=== PATIENT | male | born 1950 ===

== ENCOUNTER 2016-07-12 00:56 | Inpatient (IN) | payer OTHER ==
--- NOTE | 2016-06-22 14:23 | History & Physical Pre-Op ---
General Information and HPI MD Statement: I have seen and personally examined PELON CASILLAS and documented this H&P. The patient is a 65 year old M who presented with a patient stated chief complaint of 25 years of progressively worsening right leg pain with numbness and weakness, worse x past 5 years. Source of Information: patient, old records Exam Limitations: no limitations History of Present Illness: Pelon is a 65-year-old male who has been complaining of 25 years of progressively worsening right leg pain which has worsened over the last 5 years. Pelon states that the pain in his right leg is predominantly on the anterior and posterior surface down into his knee. He does admit to numbness and weakness in his right quad with associated atrophy. He has no significant pain beyond his knee nor does he experience any left leg symptoms. He does occasionally experience right-sided low back pain but no apparent groin pain. Pelon has had 5 epidural steroid injections which have given him temporary symptom relief. He has also tried Arcoxia and diclofenac as well as activity modification which has been minimally effective. Pelon's MRI shows a large right sided L3-4 disc herniation with L4-5 spinal stenosis and degenerative disc disease, consistent with his symptoms. Due to his progressively worsening motor loss and pain, Pelon wants nothing more to do with nonsurgical treatment and has been scheduled for a posterior lumbar decompression and fusion L3-S1 with instrumentation and iliac crest bone grafting on 07/12/2016. Allergies/Medications Allergies: Coded Allergies: codeine (Mild, nausea 06/22/16) Home Med list Coconut Oil 1,000 MG CAPSULE 1,000 MG PO BID general health (Reported) two capsules BID Echinacea Purpurea Root (Echinacea) 80 MG CAPSULE 80 MG PO DAILY general health (Reported) Sitagliptin Phosphate (Januvia) 50 MG TABLET 1 TAB PO DAILY NIDDM (Reported) Tamsulosin HCl (Flomax) 0.4 MG CAP.ER.24H 1 CAP PO DAILY BPH (Reported) Compliance With Home Meds: GOOD Past History Medical History Neurological: NONE EENT: NONE Cardiovascular: NONE Respiratory: NONE Gastrointestinal: NONE Hepatic: NONE Renal: NONE Musculoskeletal: chronic back pain, disk herniation, degen joint disease, osteoarthritis, sciatica, spinal stenosis Psychiatric: NONE Endocrine: diabetes Blood Disorders: NONE Cancer(s): NONE 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 , Age 83. FATHER, , Age 50-60; Cause: Cancer. Psychosocial History Primary Language: Frisian Smoking Status: Former Smoker (quit 26 years ago) ETOH Use: occasional use Other Social History: with 2 daughters and 2 grandchildren Employment History Employment: Employed Profession/Employer: [employer] Review of Systems Review of Systems: Remarkable for the above complaints. Exam & Diagnostic Data Physical Exam: Height: 5'4" Weight: 240lbs. Physical Exam General Appearance Alert, Oriented X3, Cooperative, Mild Distress Skin No Rashes, No Breakdown, No Significant Lesion HEENT Atraumatic, PERRLA, EOMI, Mucous Membr. moist/pink Neck Supple, No JVD, No thryomegaly, +2 Carotid Pulse wo Bruit Lymphatic Cervical nl Cardiovascular Regular Rate, Normal S1, Normal S2, No Murmurs Lungs Clear to Auscultation Abdomen Normal Bowel Sounds, Soft, No Tenderness, No Masses, GLOBOID Neurological Sensation Intact, absent right patellar reflex, atrophy of the right quad, DIFFUSELY DIMINISHED RELEXES IN COLE. LOWER EXTREMITIES, +3/5 RIGHT QUAD STRENGTH Extremities No Clubbing, No Cyanosis, No Edema, Normal Pulses Vascular Normal Pulses Assessment/Plan Assessment/Plan: Assessment: Right L3-4 disc herniation with L4-5 spinal stenosis/DDD. Plan: Pelon is scheduled for a posterior lumbar decompression and fusion L3 -S1 with instrumentation and iliac crest bone grafting on 07/12/2016. We discussed the procedure in full detail. We also discussed the pre-and postoperative course, follow-up care, and anticipated recovery. We also discussed the risks of surgery not to exclude , paralysis, infection, bleeding, continued pain, failure of the surgery, need for future surgery, DVT, vascular injury, CSF leak, etc. Given these risks, he still wishes to proceed. He is scheduled to follow-up with his primary care physician, Dr. Singer, for preoperative clearance. Pelon is tolerant of Percocet for postoperative pain control. Any changes in this patient's plan is based on this patient's outpatient clinical presentation. As Ranked By This Provider Problem List: 1. 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 Spinal stenosis Attending MD Review Statement Attending Statement Attending MD Statement: examined this patient, discuss w/resident/PA/MOLDER SETTER, agreed w/resident/PA/MOLDER SETTER, reviewed images
[~2016-07-12] VITALS: Ht 175.3 cm; Wt 108.9 kg
[~2016-07-12 00:56] MED LIST: COCONUT OIL1000 MG PO; ECHINACEA80 MG PO; FLOMAX0.4 M1 PO; JANUVIA50 M1 PO
--- NOTE | 2016-07-12 15:40 | Operative Report ---
Operative/Inv Procedure Report Surgery Date: 07/12/16 Name of Procedure: Lumbosacral decompression with laminectomies L3 4 4551 right side diagnosis right L3 nerve root and L4 nerve root. Instrumented lumbar fusion with pedicle screws L3 4 bilaterally. Bone graft fusion L34 L4 5 bilaterally with autologous morselized corticocancellous bone. Harvesting of iliac crest bone left posterior iliac crest. Reconstruction of donor site with Master graft implant. His fluoroscopy. Pre-Operative Diagnosis: Disc herniation and spinal stenosis with lateral herniation L3 4 central stenosis L4 5 degenerative stenosis L5-S1. Post-Operative Diagnosis: Same Estimated Blood Loss: 650 Surgeon/Lithographic Press Operator: PAUL TUCKER,CRISTIAN FRANK Anesthesia: general endotracheal tube Monitors: Neuro Operative/Procedure Note Note: Intubation the patient was log rolled in the prone position. The back was sterilely prepped and draped including the left posterior iliac crest. Incision in the midline and carried down over the dorsal elements with electrocautery. Deep retractors were placed. Metallic object was placed and fluoroscopy was used to identify surgical level. The dorsal elements at all 3445 and 51 within with the high-speed bur laminectomies were performed at L3 4 5 and S1 there was severe lateral stenosis at L4 5 which was debrided neural lysis of the L4 nerve root was performed under loupe magnification. Herniation which was quite large cause total blockage of the foramen compression of the L3 nerve found laterally L34. Analysis of the L3 nerve was performed. Both the L3 and L4 nerve roots on the right side were markedly erythematous and swollen. Disc material was removed from within the disc space at L3 4 L4 5. There is no evidence of herniation at L5-S1 stenosis from degenerative encroachment. Corticotomies were created and the pedicles of L3 and L4 bilaterally and using instrumentation the pedicle screws were placed under fluoroscopic guidance. A decision was made to convert the cortical threaded screws to cancellus double threaded screws on the left side which achieved excellent purchase. An incision was made over the left posterior iliac crest a subperiosteal dissection was carried lateral to the crest the Shannon retractor was placed. The cortical cancellus morcellized bone graft was harvested with the osteotomes and curettes. The defect was packed with Master Glock graft the wound was irrigated afterwards Gelfoam was applied over the graft. A closure the lumbodorsal fashion subcutaneous tissue was performed with absorbable suture the skin was closed with allen. The facet joints were decorticated with the pencil point bur and high-speed round bur at L3 4 bilaterally as were the lateral intertransverse processes from L3 to L5. Laterally bone graft was packed from L3 to L5. Bone graft was laid over the facet joints at all 34 and compressed during placement of the rods. Rods were locked into position. The construct was checked in AP and lateral as well as oblique planes and found to be appropriate under fluoroscopic guidance. The wound was copiously irrigated Gelfoam was laid over the laminotomy sites at L3 4 4 5 and 51 on the right side. In a closure the lumbodorsal fashion subcutaneous tissue was performed with absorbable suture the skin was closed with allen.
--- NOTE | 2016-07-12 16:39 | Patient Discharge Instructions ---
Acute Coronary Syndrome Inclusion Criteria At DC or during hospital stay patient has or had the following: ACS DIAGNOSIS No Discharge Core Measures Meds if any: Prescribed or Continued at Discharge Meds if any: NOT Prescribed or Continued at Discharge Congestive Heart Failure Inclusion Criteria At DC or during hospital stay patient has or had the following: CHF DIAGNOSIS No Discharge Core Measures Meds if any: Prescribed or Continued at Discharge Meds if any: NOT Prescribed or Continued at Discharge Cerebrovascular accident Inclusion Criteria At DC or during hospital stay patient has or had the following: CVA/TIA Diagnosis No Discharge Core Measures Meds if any: Prescribed or Continued at Discharge Meds if any: NOT Prescribed or Continued at Discharge Venous thromboembolism Inclusion Criteria VTE Diagnosis No VTE Type NONE VTE Confirmed by (Test) NONE Discharge Core Measures - Per Current guidelines, there needs to be overlap - treatment for the first 5 days of Warfarin therapy. - If discharged on Warfarin prior to 5 days of - overlap therapy, the patient will need to be - assessed for post discharge needs including - *Post discharge parental anticoagulation - *Warfarin and/or parental anticoagulation education - *Follow up date to check INR post discharge At least 5 days overlap therapy as Inpatient No Meds if any: Prescribed or Continued at Discharge Note: Overlap Therapy is Warfarin and Anticoagulant Meds if any: NOT Prescribed or Continued at Discharge
[2016-07-12] MEDS ORDERED: HYDROMORPHONE HC2 M1 PO (16:49)
--- NOTE | 2016-07-12 17:10 | RADIOLOGY REPORT ---
EXAMINATION: XR LUMBOSACRAL SPINE CLINICAL INFORMATION: Lumbar laminectomy with fusion in OR. COMPARISON: None TECHNIQUE: Fluoroscopic equipment was dedicated to the operating room for the performance of a lumbar laminectomy with fusion. 4 spot films were obtained and are archived in PACS. FLUOROSCOPY TIME: 0.5 minutes. FINDINGS: The patient has undergone lumbar decompression and fusion at the L3-L4 level with transpedicular screws and bilateral fusion rods seen in place. Alignment appears anatomic. IMPRESSION: Administrative dictation for lumbar decompression and fusion at L3-L4.
--- NOTE | 2016-07-12 17:25 | Cons- Medical ---
DONALD PRIEST MD 07/12/16 1724: General Information and HPI Consulting Request Date of Consult: 07/12/16 Requested By: RICO MILLER MD History of Present Illness: This is a 65-year-old male with a past medical history of diabetes , currently being maintained on Januvia, benign prostate hyperplasia, with the past surgical history of bilateral rotator cuff tear, tonsillectomy in the past who presented to the [facility] after he was seen in the same day surgery for laminectomy(Dr. Rico Miller primary orthopedics). Postoperatively medical team was consulted with co management of the patient's medical issues. The patient was evaluated postoperatively and he was sitting comfortably in bed without any distress. He had no specific complaints except for mild back pain after the surgery Regarding his diabetes he has been maintained on Januvia for many years. He also maintains his sugar logs and also keep his diet and check for his diabetes. He does complain of mild peripheral neuropathy but he attributes this secondary to his low back pain. Regarding the patient's benign prostate hyperplasia he has been maintained on Flomax and denies any urinary urgency, retention or incontinence. The patient also has a history of obstructive sleep apnea and is maintained on CPAP at night Allergies/Medications Allergies: Coded Allergies: codeine (Mild, nausea 06/22/16) Home Med List: Hydromorphone HCl 2 MG TABLET 2 MG PO Q3P PRN PAIN SCALE 1-3 (MILD) 1-2 TABS PO Q 4-6 HOURS PRN PAIN Sitagliptin Phosphate (Januvia) 50 MG TABLET 1 TAB PO DAILY NIDDM (Reported) Tamsulosin HCl (Flomax) 0.4 MG CAP.ER.24H 1 CAP PO DAILY BPH (Reported) Review of Systems Review of Systems Constitutional: Reports: see HPI. EENTM: Reports: see HPI. Cardiovascular: Denies: chest pain, edema, orthopena. Respiratory: Denies: cough, hemoptysis, orthopnea, short of breath. GI: Denies: bloating, constipation, diarrhea, distention, bowel incontinence. Genitourinary: Denies: discharge, dysuria, frequency, hematuria, hesitation. Musculoskeletal: Reports: joint pain. Denies: back pain, joint swelling. 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 , Age 83. FATHER, , Age 50-60; Cause: Cancer. Psychosocial History Primary Language: Greenlandic Smoking Status: Former Smoker (quit 26 years ago) ETOH Use: occasional use Other Social History: with 2 daughters and 2 grandchildren Employment History Employment: Employed Profession/Employer: [employer] at [employer] Exam & Diagnostic Data Last 24 Hrs of Vital Signs/I&O Vital Signs Date Time Temp Pulse Resp B/P B/P Pulse O2 O2 Flow FiO2 Mean Ox Delivery Rate 07/12 1838 97.0 90 12 150/70 95 Nasal 3.0L Cannula Physical Exam General Appearance: well developed/nourished, obese (evaluate) Head: atraumatic Ears, Nose, Throat: normal pharynx, normal ENT inspection Neck: normal inspection, supple Cardiovascular: regular rate/rhythm, edema Back: normal inspection, the wound looks clean without any purulent discharge or any redness. NO Drainage seen from the dressing Last 24 Hrs of Labs/Lico: Laboratory Tests 07/13/16 0630: CBC w Diff NO MAN DIFF REQ, RBC 4.00 L, MCV 90.5, MCH 30.5, RDW 13.8, MPV 8.7, Gran % 79.5 H, Lymphocytes % 14.4 L, Monocytes % 5.8, Eosinophils % 0.1, Basophils % 0.2, Absolute Granulocytes 13.4 H, Absolute Lymphocytes 2.4, Absolute Monocytes 1.0 H, Absolute Eosinophils 0, Absolute Basophils 0, PUBS MCHC 33.7 07/12/16 1842: Urine Color Cancelled, Urine Clarity Cancelled, Urine pH Cancelled, Ur Specific [place] Cancelled, Urine Protein Cancelled, Urine Ketones Cancelled, Urine Nitrite Cancelled, Urine Bilirubin Cancelled, Urine Urobilinogen Cancelled, Ur Leukocyte Esterase Cancelled, Ur Microscopic Cancelled, Urine Hemoglobin Cancelled, Urine Glucose Cancelled 07/12/16 1630: Hemoglobin A1c 6.7 H, CBC w Diff MAN DIFF ORDERED, RBC 4.52 L, MCV 91.1, MCH 30.1, RDW 13.7, MPV 8.3, Gran % 90.5 H, Lymphocytes % 8.6 L, Monocytes % 0.8 L, Eosinophils % 0, Basophils % 0.1, Absolute Granulocytes 22.4 H, Segmented Neutrophils 84 H, Absolute Lymphocytes 2.1, Lymphocytes 14 L, Monocytes 2, Absolute Monocytes 0.2, Absolute Eosinophils 0, Absolute Basophils 0, Platelet Estimate ADEQUATE, Normocytic RBCs VERIFIED, Normochromic RBCs VERIFIED, PUBS MCHC 33.0 Diagnostic Data CXR Results unremarkable exam Assessment/Plan Assessment/Plan This is a 65-year-old male with a past medical history of diabetes and benign prostate hyperplasia, obstructive sleep apnea currently being maintained on CPAP at night to presented to the [facility] for. Back pain and is currently being seen status post laminectomy, for the management of diabetes mellitus The patient's vitals postoperatively were as follows Temperature 90.7, blood pressure 150/70, pulse ox of 95% on 3 L of oxygen, pulse rate of 90, respiration rate of 12 Labs shows WBC of 24.7 but no bands, hemoglobin and hematocrit of 13.6 and 41.2. EKG looks unremarkable with normal sinus rhythm Assessment 1. Back pain status post laminectomy D1 2. Acute hypoxia status post surgery and anesthesia 3 Chronic diabetes mellitus currently being maintained on Januvia at home 4. History of obstructive sleep apnea currently on CPAP at night 5. Acute leukocytosis seems to reactive after surgery 6. History of benign prostate hyperplasia currently being maintained on Flomax Recommendations -We recommend switching Januvia to NovoLog sliding-scale by the patient is in the hospital -Accu-Cheks 3 times a day at bedtime -Check hemoglobin A1c -For patient's acute hypoxia, recommend incentive spirometry and also do a chest x-ray as the patient is hypoxic postanesthesia -Water antibiotics for now but repeat CBC in the morning to follow the trend of the leukocytosis -Check TSH and free T4 -Aggressive incentive spirometry -Continue with Flomax in the morning -Continue CPAP at night -DVT prophylaxis at all times Problem List: 1. 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 CAMILO TUCKER, [facility] 07/12/16 5376: Assessment/Plan Consult Acknowledgment - Thank you for your consult request. Attending MD Review Statement Attending Statement Attending MD Statement: examined this patient, discuss w/resident/PA/CLERICAL ADJUDICATOR, agreed w/resident/PA/CLERICAL ADJUDICATOR, discussed with family, discussed with nursing Attending Assessment/Plan: 65 yo morbidly obese male with h/o T2DM on Januvia, neuropathy, sleep apnea (not on CPAP), arthritis, BPH, chronic back pain, is admitted s/p lumbar decompression/laminectomy and fusion L3-S1 for disc herniation with spinal stenosis. Medicine consult for co-management. He c/o nausea, but no vomiting. Reports feeling cold. He denies chest pain, dyspnea, palpitations or lightheadedness. On arrival to floor, he was noted to be hypoxic to 86% on RA -- > sats improved to 95-96% on 3L. Denies cough or phlegm. Patient has not underlying cardiac or pulmonary disease. Vitals: afebrile, tachycardic to 90's, BP 150/68, sats 96% on 3L. Unremarkable exam, other than wound dressing to the back that is C/D/I. Labs: WBC 24.7 (10.9 on 07/11), gran 90.5%, no bands, H/H 13.6/41.2, BEP done on 07/11 was normal except glucose was 105. INR 1.12. UA was negative. EKG: SR, Qtc 421, no acute changes. 1. Acute post-operative hypoxic respiratory failure in this patient with underlying sleep apnea, likely 2/2 atelectasis - post-anesthesia effect. Maintain on O2 to keep sats > 92%, provide incentive spirometry, TRC nebs, taper down O2 as possible. Obtain CXR to rule out pneumonia. If patient remains persistently hypoxic, would consider evaluation with ABG and CT chest, and possible NIV as needed. Please note, patient does not use CPAP at home. Adequate pain management per primary team. Bowel regime while on opiates. Check TSH and free T4. 2. T2DM. Accucheks, hold januvia, provide novolog SS while inpatient. Check HbA1c. Resume Januvia on discharge. Diabetic diet. 3. Leukocytosis likely reactive. UA was negative, CXR is pending. Monitor off antibiotics for now. Recheck CBC in AM. 4. BPH. Continue tamsulosin. DVT prophylaxis Alps. Full code. Thank you for the consult. We will continue to follow the patient with you.
[2016-07-12 17:43] LABS: ABSOLUTE BASOPHIL COUNT 0 /CUMM (0.0-0.2); ABSOLUTE EOSINOPHIL COUNT 0 /CUMM (0.0-0.7); ABSOLUTE GRANULOCYTE CT 22.4 /CUMM (1.4-6.5); ABSOLUTE LYMPH COUNT 2.1 /CUMM (1.2-3.4); ABSOLUTE MONOCYTE COUNT 0.2 /CUMM (0.10-0.60); BASOPHIL % 0.1 % (0.0-2.0); EOSINOPHIL % 0 % (0-5); GRANULOCYTE % 90.5 % (42.2-75.2); HEMATOCRIT 41.2 % (42-52); MEAN CORPUSCULAR HGB 30.1 PG (27.0-31.0); MEAN CORPUSCULAR VOLUME 91.1 FL (80.0-94.0); MEAN PLATELET VOLUME 8.3 FL (7.4-10.4); PLATELET COUNT 242 /CUMM (130-400); RBC DISTRIBUTION WIDTH 13.7 % (11.5-14.5); RED BLOOD CELL CT 4.52 /CUMM (4.70-6.10)
[2016-07-12 17:49] LABS: WHITE BLOOD CELL COUNT 24.7 /CUMM (4.8-10.8)
--- NOTE | 2016-07-12 18:26 | NUR ---
PT ARRIVED TO FLOOR AT THIS TIME FROM PACU. ALERT ORIENTED X 3. ON RA 86% PLACED ON 3L 95-96% RR 12, ORAL TEMP 96.2-97.0 BP 150/70 HR 90 CALL PLACED TO SURGICAL PA TO MAKE AWARE, DRESSING TO BACK CD+I, +CMS. MEDICAL CONSULT BEING DONE AT THIS TIME. DINNER ORDER PLACED. PT'S AT BEDSIDE. DTV AWAITING TO VOID S/P MOREAU REMOVAL IN PACU. PER PT HE DOES NOT TAKE INSULIN AT HOME, TAKES JANUVIA. NOTE PT TAKES HE IS COLD- FINGERTIPS COLD, EXTRA BLANKETS PROVIDED. DENIES PAIN TO BACK UNLESS WITH MOVEMENT AND THEN PAIN IS MINIMAL. REFUSING PAIN MEDS AT THIS TIME. DENIES NUMBNESS AND TINGLING TO LEGS/FEET. ORIENTED TO ROOM AND USE OF CALL TURCIOS. WILL CONTINUE TO MONITOR.
[2016-07-12 18:38] VITALS: BP 150/70
--- NOTE | 2016-07-12 19:01 | NUR ---
PORTABLE CXR BEING DONE AT THIS TIME-ORDERED DUE TO DE-SAT WHEN PT ARRIVED TO FLOOR. LUNGS DIMINISHED, NO COUGH. ON 3L AT THIS TIME 96%. IST TEACHING DONE WITH PT.
--- NOTE | 2016-07-12 19:18 | RADIOLOGY REPORT ---
EXAMINATION: XR PORTABLE CHEST CLINICAL INFORMATION: Aspiration. Hypoxia. COMPARISON: None TECHNIQUE: Portable frontal view of the chest was obtained. 7:01 PM FINDINGS: No significant abnormality is noted involving the heart, lungs, mediastinum, bony thorax or soft tissues. IMPRESSION: Unremarkable examination.
--- NOTE | 2016-07-12 20:45 | PN- Orthopedic ---
Subjective Subjective: Postop check: Patient is comfortable, lying in bed. He only has pain when he moves. He denies any numbness or weakness in the extremities. He has yet to void. He has no other complaints. Objective Vital Signs and I&Os Vital Signs Date Time Temp Pulse Resp B/P B/P Pulse O2 O2 Flow FiO2 Mean Ox Delivery Rate 07/12 1838 97.0 90 12 150/70 95 Nasal 3.0L Cannula Physical Exam: Well-developed well-nourished no apparent distress. HEENT: Atraumatic, extraocular motion intact Neck: Supple, no lymphadenopathy Respiratory: No respiratory distress Abdomen: Soft nontender Back: Dry sterile dressing noted Extremities: No edema, no calf pain Neuro: Alert and oriented x3 , neurovascular intact bilateral lower extremities Psych: Mood affect normal, normal memory normal judgment. Skin: Warm and dry, no rash on exposed skin Assessment/Plan Assessment/Plan Postop day 0 status post posterior lumbar decompression and fusion L3-S1 with instrumentation and iliac crest bone grafting secondary to Right L3-4 disc herniation with L4-5 spinal stenosis/DDD. -Ambulate as tolerated, physical therapy tomorrow. -Pain medication as needed -Trial of void - IV fluids until tolerating adequate by mouth -2 doses of postop antibiotics -ALPS for DVT prophylaxis -Appreciate medical input for comanagement of his multiple medical problems -Dressing change postop day 2 -Orthopedically stable at this time -check labs in am due to leukocytosis, agree with medicine, likely reactive 2/2 surgery, no signs of infection clinically. Core Measures/Miscellaneous Venous Thromboembolism VTE Risk Factors: Age > 40, Surgery VTE Contraindications: No Contraindications VTE Diagnosis: No Beta Javier Is Beta Javier a Home Med? No Antibiotics Is Patient on Antibiotics? Yes If Yes: prophylaxis
[2016-07-12 21:04] VITALS: BP 150/68
--- NOTE | 2016-07-12 22:15 | NUR ---
PT DUE TO VOID- MOREAU WAS REMOVED IN PACU JUST BEFORE PT CAME TO FLOOR- DTV APPROX 0100. DENIES PRESSURE OR PAIN TO BLADDER AREA AT THIS TIME, NO URGE TO VOID AT THIS TIME. PROVIDED WITH URINAL. IVF INFUSING AT 100 ML/HR. TAKING IN SMALL AMT'S PO FLUIDS- PO FLUIDS ENCOURAGED. WILL CONTINUE TO MONITOR.
--- NOTE | 2016-07-12 22:42 | NUR ---
PT STATED THAT HE VOIDED IN THE URINAL- EMPTIED AND FLUSHED. "IT WAS ABOUT HALF FULL". INSTRUCTED TO KEEP URINE NEXT VOID AND LET NURSE KNOW
[2016-07-13 01:57] VITALS: BP 130/82
[2016-07-13 06:33] VITALS: BP 132/96
--- NOTE | 2016-07-13 07:34 | PN- Orthopedic ---
Subjective Subjective: Reports back / incisional discomfort, which improves with dilaudid. Tolerating clears. No nausea. Not yet out of bed. No dizziness. No shortness of breath. No chest pains. Voiding well. Denies numbness / tingling. Objective Vital Signs and I&Os Vital Signs Date Time Temp Pulse Resp B/P B/P Pulse O2 O2 Flow FiO2 Mean Ox Delivery Rate 07/13 0633 98.8 99 20 132/96 96 Nasal 3.0L Cannula 07/13 0157 98.6 97 16 130/82 96 Nasal 3.0L Cannula 07/13 2135 Nasal 3.0L Cannula 07/13 2103 97.8 92 15 150/68 97 Nasal 3.0L Cannula 07/12 1838 97.0 90 12 150/70 95 Nasal 3.0L Cannula Intake & Output 07/13 0800 07/13 0000 07/12 1600 07/12 0800 07/12 0000 07/11 1600 Intake Total 800 Output Total Balance 800 Intake, IV 800 Patient 240 lb Weight Physical Exam: General - alert & oriented x 3. comfortable. no acute distress. Lungs - clear bilaterally. no w/r/r. Cardiac - s1s2. reg. Abdomen - soft. nontender. Lumbar dressing c/d/i. no drains. no hematoma. Extremities - warm bilaterally. no c/c/e. calves soft and nontender b/l. nvi. Current Medications: Current Medications Sig/Lillian Start time Last Medication Dose Route Stop Time Status Admin Acetaminophen 650 MG Q4P PRN 07/12 1630 AC PO Acetaminophen 1,000 MG .STK-MED ONE 07/12 0845 DC IV 07/12 0846 Bisacodyl 5 MG DAILY PRN 07/12 1845 AC PO Bisacodyl 10 MG DAILY NEEDED PRN 07/12 1630 AC AL Calcium 600 MG BID 07/12 2200 AC 07/12 PO 211 Cefazolin Sodium 1,000 MG IQ8 07/13 0000 AC 07/13 IV 07/13 1601 0031 Cholecalciferol 1,000 IU DAILY 07/13 1000 AC PO Docusate Sodium 100 MG TID 07/12 2200 AC 07/12 PO 211 Fentanyl Citrate 250 MCG .STK-MED ONE 07/12 0845 DC IM 07/12 0846 Hydromorphone HCl 0.6 MG Q4P PRN 07/12 1645 AC 07/13 IV 0658 Hydromorphone HCl 2 MG Q3P PRN 07/12 1645 AC PO Hydromorphone HCl 4 MG Q3P PRN 07/12 1645 AC 07/12 PO 2116 Insulin Aspart 0 TIDAC 07/13 0800 AC SC Insulin Aspart 0 TIDAC 07/12 1700 DC 07/12 SC 1850 Lactated Ringer's 1,000 ML Q10H 07/12 1630 DC 07/13 IV 0145 Magnesium Hydroxide 30 ML AT BEDTIME PRN 07/12 1645 AC PO Meperidine HCl 50 MG .STK-MED ONE 07/12 1634 DC IM 07/12 1635 Midazolam HCl 4 MG .STK-MED ONE 07/12 0846 DC IM 07/12 0847 Multivitamins 1 TAB DAILY 07/13 1000 AC PO Ondansetron HCl 4 MG Q6P PRN 07/12 1630 AC IV Remifentanil 2 MG .STK-MED ONE 07/12 0846 DC IV 07/12 0847 Senna/Docusate Sodium 2 TAB DAILY PRN 07/12 1845 AC PO Sitagliptin Phosphate 100 MG DAILY 07/13 1000 CAN PO Sitagliptin Phosphate 50 MG DAILY 06/23 1000 DC PO Tamsulosin HCl 0.4 MG DAILY 07/13 1000 AC PO Tamsulosin HCl 0.4 MG DAILY 06/23 1000 DC PO Trimethobenzamide HCl 200 MG Q6P PRN 07/12 1630 AC IM Results Last 48 Hours of Labs: Laboratory Tests 07/13 07/12 07/12 0630 1842 1630 Chemistry Hemoglobin A1c Pending Hematology CBC w Diff Pending MAN DIFF ORDERED WBC (4.8 - 10.8 /CUMM) Pending 24.7 H RBC (4.70 - 6.10 /CUMM) Pending 4.52 L Hgb (14.0 - 18.0 G/DL) Pending 13.6 L Hct (42 - 52 %) Pending 41.2 L MCV (80.0 - 94.0 FL) Pending 91.1 MCH (27.0 - 31.0 PG) Pending 30.1 RDW (11.5 - 14.5 %) Pending 13.7 Plt Count (130 - 400 /CUMM) Pending 242 MPV (7.4 - 10.4 FL) Pending 8.3 Gran % (42.2 - 75.2 %) 90.5 H Lymphocytes % (20.5 - 51.1 %) 8.6 L Monocytes % (1.7 - 9.3 %) 0.8 L Eosinophils % (0 - 5 %) 0 Basophils % (0.0 - 2.0 %) 0.1 Absolute Granulocytes (1.4 - 6.5 /CUMM) 22.4 H Segmented Neutrophils (42.2 - 75.2 %) 84 H Absolute Lymphocytes (1.2 - 3.4 /CUMM) 2.1 Lymphocytes (20.5 - 51.1 %) 14 L Monocytes (1.7 - 9.3 %) 2 Absolute Monocytes (0.10 - 0.60 /CUMM) 0.2 Absolute Eosinophils (0.0 - 0.7 /CUMM) 0 Absolute Basophils (0.0 - 0.2 /CUMM) 0 Platelet Estimate (ADEQUATE) ADEQUATE Normocytic RBCs VERIFIED Normochromic RBCs VERIFIED PUBS MCHC (33.0 - 37.0 G/DL) Pending 33.0 Urines Urine Color Cancelled Urine Clarity Cancelled Urine pH Cancelled Ur Specific [place] Cancelled Urine Protein Cancelled Urine Ketones Cancelled Urine Nitrite Cancelled Urine Bilirubin Cancelled Urine Urobilinogen Cancelled Ur Leukocyte Esterase Cancelled Ur Microscopic Cancelled Urine Hemoglobin Cancelled Urine Glucose Cancelled Assessment/Plan Assessment/Plan This 65 year old male with hx dm, bph, is POD#1 s/p posterior lumbar decompression and fusion L3-S1 with instrumentation and iliac crest bone grafting secondary to Right L3-4 disc herniation with L4-5 spinal stenosis/DDD. advance diet to diabetic diet d/c iv fluids continue dilaudid prn pain control mei-operative ancef x 2 doses accuchecks / ss coverage wean o2. IS teaching PT eval this morning f/u cbc alps / oob dressing change POD#2 f/u medical consult will d/w Core Measures/Miscellaneous Venous Thromboembolism VTE Risk Factors: Age > 40, Surgery VTE Contraindications: No Contraindications VTE Diagnosis: No Beta Javier Is Beta Javier a Home Med? No Antibiotics Is Patient on Antibiotics? Yes If Yes: prophylaxis
[2016-07-13 08:07] LABS: ABSOLUTE BASOPHIL COUNT 0 /CUMM (0.0-0.2); ABSOLUTE EOSINOPHIL COUNT 0 /CUMM (0.0-0.7); ABSOLUTE GRANULOCYTE CT 13.4 /CUMM (1.4-6.5); ABSOLUTE LYMPH COUNT 2.4 /CUMM (1.2-3.4); BASOPHIL % 0.2 % (0.0-2.0); EOSINOPHIL % 0.1 % (0-5); GRANULOCYTE % 79.5 % (42.2-75.2); MEAN CORPUSCULAR HGB 30.5 PG (27.0-31.0); MEAN CORPUSCULAR HGB CONC 33.7 G/DL (33.0-37.0); MEAN CORPUSCULAR VOLUME 90.5 FL (80.0-94.0); MEAN PLATELET VOLUME 8.7 FL (7.4-10.4); PLATELET COUNT 187 /CUMM (130-400); RBC DISTRIBUTION WIDTH 13.8 % (11.5-14.5); WHITE BLOOD CELL COUNT 16.8 /CUMM (4.8-10.8)
[2016-07-13 08:44] LABS: HEMATOCRIT 36.2 % (42-52)
--- NOTE | 2016-07-13 09:35 | PN- Medicine Consult ---
DAYLINDANODEIDREMARY 07/13/16 0929: Assessment/Plan Assessment/Plan Assessment: This is a 65-year-old male with past medical history of diabetes, BPH, obstructive sleep apnea, not using CPAP at home, came in to [facility] for surgical management of disc herniation and spinal stenosis is status post spinal decompression surgery and laminectomy from L3 to S1, day 2 today.Medical team was consulted for management of DM, acute hypoxis respiratory failure and luecocytosis. Yesterday's relevant labs were white count of 24.7, no bands, H&H 13.6/41.2. Patient was afebrile, initially, the patient became hypoxic, however, later he was stabilized on 95% on 3 L of nasal cannula. He continues to saturate 95% on 3 L. Pulse rate around 99, respiration 15. EKG on presentation showed normal sinus rhythm with no acute changes. Problem list along with assessment and plan. Problem #1.Spinal disc herniation and spinal stenosis status post spinal decompression and laminectomy from L3 to S5. Problem #2 Acute hypoxic respiratory failure status post surgery and anesthesia. Problem #3 Chronic diabetes mellitus. Problem #4 Obstructive sleep apnea (not using CPAP) Problem #5 Luecocytosis most likely reactive secondary to surgery. Problem #6.History of BPH Plan: * Continue NovoLog sliding scale. * Continue to monitor fingersticks. * Finger Stick noted to be 155, 155, 175, 208. * White Count has come down to 16.0, chest x-ray was negative, we can check a UA just to make sure no signs on infection (less likely), patient remianed afebrile overnight) * Continue Flomax for BPH. * Continue CPAP at night for obstructive sleep apnea. * Continue incentive spirometry. * Out of bed to chair. * Ambualte as tolerated * PT evaluation. 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 BPH (benign prostatic hyperplasia) 3. Spinal stenosis 4. Leucocytosis 5. S/P laminectomy with spinal fusion Subjective Subjective: I have seen and examined the patient today morning, he was resting comfortably in the bed. His vitals were stable. He was afebrile overnight, MAXIMUM TEMPERATURE of 98.8, slightly tachycardic around 99, blood pressure of 132/96, he was 96% saturating on 3 L of nasal cannula. His breathing seems to be much better and he is not in any distress. Reilly catheter has been removed. Patient hasn't moved his bowel yet. However, he has been given so softener. He complains of pain in the back in the area of surgery, the dressing is present and it is not soaked, it is dry. Review of Systems Constitutional: Denies: chills, diaphoresis, fever, malaise, weakness. EENTM: Denies: blurred vision, double vision, visual changes, eye pain. Cardiovascular: Denies: chest pain, edema, orthopena, palpitations. Respiratory: Denies: cough, hemoptysis, orthopnea, short of breath. Gastrointestinal: Denies: abdominal pain, bloating, constipation, diarrhea. Genitourinary: Reports: no symptoms. Musculoskeletal: Reports: no symptoms. Skin: Denies: cysts, change in skin color, change in hair/nails, dryness. Neurological/Psychological: Reports: see HPI. Hematologic/Endocrine: Reports: no symptoms. Objective Last 24 Hrs of Vital Signs/I&O Vital Signs Date Time Temp Pulse Resp B/P B/P Pulse O2 O2 Flow FiO2 Mean Ox Delivery Rate 07/13 0754 99 132/96 07/13 0633 98.8 99 20 132/96 96 Nasal 3.0L Cannula 07/13 0157 98.6 97 16 130/82 96 Nasal 3.0L Cannula 07/12 2136 Nasal 3.0L Cannula 07/12 2104 97.8 92 15 150/68 97 Nasal 3.0L Cannula 07/12 1838 97.0 90 12 150/70 95 Nasal 3.0L Cannula Intake & Output 07/13 1600 07/13 0800 07/13 0000 Intake Total 800 Output Total Balance 800 Intake, IV 800 Patient 108.862 kg Weight Physical Exam General Appearance: well developed/nourished, no apparent distress, alert, awake , comfortable Head: atraumatic, normal appearance Ears, Nose, Throat: normal pharynx Neck: normal inspection, supple, full range of motion Cardiovascular: regular rate/rhythm Respiratory: normal breath sounds, chest non-tender, no respiratory distress Peripheral Pulses: 2+ radial (R), 2+ radial (L) Abdomen: normal bowel sounds, soft, non-tender Back: dressing present in the area of surgery, dressign is dry, patient unable to lie on back. Extremities: normal inspection, normal capillary refill, normal range of motion, no edema Neurologic/Psychiatric: no motor/sensory deficits, awake, alert, oriented x 3 Current Medications: Current Medications Sig/Lillian Start time Last Medication Dose Route Stop Time Status Admin Acetaminophen 650 MG Q4P PRN 07/12 1630 AC PO Bisacodyl 5 MG DAILY PRN 07/12 1845 AC PO Bisacodyl 10 MG DAILY NEEDED PRN 07/12 1630 AC [place] Calcium 600 MG BID 07/12 2200 AC 07/13 PO 0753 Cefazolin Sodium 1,000 MG IQ8 07/13 0000 DC 07/13 IV 07/13 0801 0754 Cholecalciferol 1,000 IU DAILY 07/13 1000 AC 07/13 PO 0753 Docusate Sodium 100 MG TID 07/12 2200 AC 07/13 PO 0754 Hydromorphone HCl 0.6 MG Q4P PRN 07/12 1645 AC 07/13 IV 0658 Hydromorphone HCl 2 MG Q3P PRN 07/12 1645 AC PO Hydromorphone HCl 4 MG Q3P PRN 07/12 1645 AC 07/12 PO 2116 Insulin Aspart 0 TIDAC 07/13 0800 AC 07/13 SC 0835 Insulin Aspart 0 TIDAC 07/12 1700 DC 07/12 SC 1850 Lactated Ringer's 1,000 ML Q10H 07/12 1630 DC 07/13 IV 0145 Magnesium Hydroxide 30 ML AT BEDTIME PRN 07/12 1645 AC PO Meperidine HCl 50 MG .STK-MED ONE 07/12 1634 DC IM 07/12 1635 Multivitamins 1 TAB DAILY 07/13 1000 AC 07/13 PO 0753 Ondansetron HCl 4 MG Q6P PRN 07/12 1630 AC IV Senna/Docusate Sodium 2 TAB DAILY PRN 07/12 1845 AC PO Sitagliptin Phosphate 100 MG DAILY 07/13 1000 CAN PO Sitagliptin Phosphate 50 MG DAILY 06/23 1000 DC PO Tamsulosin HCl 0.4 MG DAILY 07/13 1000 AC 07/13 PO 0754 Tamsulosin HCl 0.4 MG DAILY 06/23 1000 DC PO Trimethobenzamide HCl 200 MG Q6P PRN 07/12 1630 AC IM Results Last 24 Hrs Lab/Lico Results: Laboratory Tests 07/13/16 0630: CBC w Diff NO MAN DIFF REQ, RBC 4.00 L, MCV 90.5, MCH 30.5, RDW 13.8, MPV 8.7, Gran % 79.5 H, Lymphocytes % 14.4 L, Monocytes % 5.8, Eosinophils % 0.1, Basophils % 0.2, Absolute Granulocytes 13.4 H, Absolute Lymphocytes 2.4, Absolute Monocytes 1.0 H, Absolute Eosinophils 0, Absolute Basophils 0, PUBS MCHC 33.7 07/12/16 1842: Urine Color Cancelled, Urine Clarity Cancelled, Urine pH Cancelled, Ur Specific [place] Cancelled, Urine Protein Cancelled, Urine Ketones Cancelled, Urine Nitrite Cancelled, Urine Bilirubin Cancelled, Urine Urobilinogen Cancelled, Ur Leukocyte Esterase Cancelled, Ur Microscopic Cancelled, Urine Hemoglobin Cancelled, Urine Glucose Cancelled 07/12/16 1630: Hemoglobin A1c Pending, CBC w Diff MAN DIFF ORDERED, RBC 4.52 L, MCV 91.1, MCH 30.1, RDW 13.7, MPV 8.3, Gran % 90.5 H, Lymphocytes % 8.6 L, Monocytes % 0.8 L, Eosinophils % 0, Basophils % 0.1, Absolute Granulocytes 22.4 H, Segmented Neutrophils 84 H, Absolute Lymphocytes 2.1, Lymphocytes 14 L, Monocytes 2, Absolute Monocytes 0.2, Absolute Eosinophils 0, Absolute Basophils 0, Platelet Estimate ADEQUATE, Normocytic RBCs VERIFIED, Normochromic RBCs VERIFIED, PUBS MCHC 33.0 Microbiology 07/12 1000 URINE ROUT: Urine Culture - RECD Recent Imaging Studies: SERVICE DATE: 07/12/16- EXAM TYPE: RAD - XRY-LUMBOSACRAL SPINE AP & LAT EXAMINATION: XR LUMBOSACRAL SPINE FINDINGS: The patient has undergone lumbar decompression and fusion at the L3-L4 level with transpedicular screws and bilateral fusion rods seen in place. Alignment appears anatomic. IMPRESSION: Administrative dictation for lumbar decompression and fusion at L3-L4. AARTI KHAN MD 07/13/16 1022: Attending MD Review Statement Attending Sign Off Attending Cosign Statement: I have: examined this patient, reviewed al EMR data, personally reviewd images, discussd w/resident/PA/DYNAMOMETER MECHANIC, discussed mgmt plan w/alek, discussed mgmt plan w/pt, agreed w/resident/PA/DYNAMOMETER MECHANIC, amended to note. Other Findings: Patient seen and examined, feeling slightly better. He is just uncomfortable the due to his posterior. Patient is a 65-year-old male with pmh sig for diabetes, currently being maintained on Januvia, benign prostate hyperplasia, with the past surgical history of bilateral rotator cuff tear, tonsillectomy in the past who presented to the [facility] after he was seen in the same day surgery for laminectomy (Dr. Rico Roque [facility] orthoped[facility]). Postoperatively medical team was consulted with co management of the patient's medical issues. Patient was hypoxic yesterday. Still requiring 3 L of oxygen. Vital Signs Date Time Temp Pulse Resp B/P B/P Pulse O2 O2 Flow FiO2 Mean Ox Delivery Rate 07/13 0754 99 132/96 07/13 0633 98.8 99 20 132/96 96 Nasal 3.0L Cannula 07/13 0157 98.6 97 16 130/82 96 Nasal 3.0L Cannula 07/12 2136 Nasal 3.0L Cannula 07/12 2104 97.8 92 15 150/68 97 Nasal 3.0L Cannula 07/12 1838 97.0 90 12 150/70 95 Nasal 3.0L Cannula on exam; aox3, nad cv; s1,s2, rrr resp; clear abd; soft, nt, bs+ ext; no edema back: + dressing on lower back. Laboratory Tests 07/13 07/12 0630 1842 Hematology CBC w Diff NO MAN DIFF REQ WBC (4.8 - 10.8 /CUMM) 16.8 H RBC (4.70 - 6.10 /CUMM) 4.00 L Hgb (14.0 - 18.0 G/DL) 12.2 L Hct (42 - 52 %) 36.2 L MCV (80.0 - 94.0 FL) 90.5 MCH (27.0 - 31.0 PG) 30.5 RDW (11.5 - 14.5 %) 13.8 Plt Count (130 - 400 /CUMM) 187 MPV (7.4 - 10.4 FL) 8.7 Gran % (42.2 - 75.2 %) 79.5 H Lymphocytes % (20.5 - 51.1 %) 14.4 L Monocytes % (1.7 - 9.3 %) 5.8 Eosinophils % (0 - 5 %) 0.1 Basophils % (0.0 - 2.0 %) 0.2 Absolute Granulocytes (1.4 - 6.5 /CUMM) 13.4 H Absolute Lymphocytes (1.2 - 3.4 /CUMM) 2.4 Absolute Monocytes (0.10 - 0.60 /CUMM) 1.0 H Absolute Eosinophils (0.0 - 0.7 /CUMM) 0 Absolute Basophils (0.0 - 0.2 /CUMM) 0 PUBS MCHC (33.0 - 37.0 G/DL) 33.7 Urines Urine Color Cancelled Urine Clarity Cancelled Urine pH Cancelled Ur Specific [place] Cancelled Urine Protein Cancelled Urine Ketones Cancelled Urine Nitrite Cancelled Urine Bilirubin Cancelled Urine Urobilinogen Cancelled Ur Leukocyte Esterase Cancelled Ur Microscopic Cancelled Urine Hemoglobin Cancelled Urine Glucose Cancelled 07/12 1630 Chemistry Hemoglobin A1c Pending Hematology CBC w Diff MAN DIFF ORDERED WBC (4.8 - 10.8 /CUMM) 24.7 H RBC (4.70 - 6.10 /CUMM) 4.52 L Hgb (14.0 - 18.0 G/DL) 13.6 L Hct (42 - 52 %) 41.2 L MCV (80.0 - 94.0 FL) 91.1 MCH (27.0 - 31.0 PG) 30.1 RDW (11.5 - 14.5 %) 13.7 Plt Count (130 - 400 /CUMM) 242 MPV (7.4 - 10.4 FL) 8.3 Gran % (42.2 - 75.2 %) 90.5 H Lymphocytes % (20.5 - 51.1 %) 8.6 L Monocytes % (1.7 - 9.3 %) 0.8 L Eosinophils % (0 - 5 %) 0 Basophils % (0.0 - 2.0 %) 0.1 Absolute Granulocytes (1.4 - 6.5 /CUMM) 22.4 H Segmented Neutrophils (42.2 - 75.2 %) 84 H Absolute Lymphocytes (1.2 - 3.4 /CUMM) 2.1 Lymphocytes (20.5 - 51.1 %) 14 L Monocytes (1.7 - 9.3 %) 2 Absolute Monocytes (0.10 - 0.60 /CUMM) 0.2 Absolute Eosinophils (0.0 - 0.7 /CUMM) 0 Absolute Basophils (0.0 - 0.2 /CUMM) 0 Platelet Estimate (ADEQUATE) ADEQUATE Normocytic RBCs VERIFIED Normochromic RBCs VERIFIED PUBS MCHC (33.0 - 37.0 G/DL) 33.0 Assessment and recommendations: Patient is a 65-year-old male with pmh sig for diabetes, currently being maintained on Januvia, benign prostate hyperplasia, with the past surgical history of bilateral rotator cuff tear, tonsillectomy in the past who presented to the [facility] after he was seen in the same day surgery for laminectomy (Dr. Rico Roque [facility] orthoped[facility]). Postoperatively medical team was consulted with co management of the patient's medical issues. Patient was hypoxic yesterday. Still requiring 3 L of oxygen. Blood sugars are running in acceptable range. Continue sliding scale insulin. Patient on Dilaudid for pain management. Encourage incentive spirometry, ambulation with PT. Patient remains hypoxic despite doing about then will consider chest CT to rule out PE. For now will hold off. Continue other current medications. DVT prophylaxis: ALPS per spine surgery. Thank you will follow.
[2016-07-13 10:00] VITALS: BP 128/60
[2016-07-13 14:30] VITALS: BP 150/80
--- NOTE | 2016-07-13 21:37 | NUR ---
PTS PULSE 109, ASYMPTOMATIC. DENIES CP. LAYING COMFORTABLY IN BED. SURGICAL PA MADE AWARE. NO NEW ORDERS. WILL CONTINUE TO MONITOR.
[2016-07-13 22:24] VITALS: BP 150/64
[2016-07-14] VITALS (7 sets, daily range): BP systolic 110–178; BP diastolic 58–80
--- NOTE | 2016-07-14 08:18 | PN- Medicine Consult ---
AGUEDANickDEIDREMARY 07/14/16 0806: Assessment/Plan Assessment/Plan Assessment: This is a 65-year-old male with past medical history of diabetes, BPH, obstructive sleep apnea, not using CPAP at home, came in to [facility] for surgical management of disc herniation and spinal stenosis is status post spinal decompression surgery and laminectomy from L3 to S1, day 2 today.Medical team was consulted for management of DM, acute hypoxic respiratory failure and luecocytosis. On admission - relevant labs were white count of 24.7, no bands, H&H 13.6/41.2. Patient was afebrile, initially, the patient became hypoxic, however, later he was stabilized on 95% on 3 L of nasal cannula. He continues to saturate 95% on 3 L. Pulse rate around 99, respiration 15,patient in significant pain. EKG on presentation showed normal sinus rhythm with no acute changes. Problem list along with assessment and plan. Problem #1.Spinal disc herniation and spinal stenosis status post spinal decompression and laminectomy from L3 to S5. Problem #2 Acute hypoxic respiratory failure status post surgery and anesthesia, rule out PE. Problem #3 Chronic diabetes mellitus. Problem #4 Obstructive sleep apnea (not using CPAP) Problem #5 Luecocytosis most likely reactive secondary to surgery. Problem #6.History of BPH Plan: * Patient in signigficant amount of pain ,recieved 4 mg po dilaudid given by pa, also recived one time valium. * the tachycardia and high systolic bp possible 2/2 to pain, ct to monitor, however we need to rule out PE. * Would recommend checking a bep and if creatinine within normal range, consider doing a CTA to rule out PE. * Continue NovoLog sliding scale. * Continue to monitor fingersticks. * Finger Stick noted to be 162,242,163,171,200 * White Count has come down to 16.0 yday chest x-ray was negative,Ua negative, therefore have not been monitoring CBC for white count. * Continue Flomax for BPH. * Continue CPAP at night for obstructive sleep apnea. * Continue incentive spirometry. * Out of bed to chair. * Ambualte as tolerated * PT evaluation. * DVt PX at all the time Problem List: 1. S/P laminectomy with spinal fusion 2. Leucocytosis 3. Spinal stenosis 4. Diabetes 1.5, managed as type 2 5. BPH (benign prostatic hyperplasia) Subjective Subjective: I have seen and examined the patient today morning. He c/o continued pain, severe around the area of surgery. He is tachycardic and slightly higher blood pressure possible 2/2 to pain. Review of Systems Constitutional: Reports: see HPI. Objective Last 24 Hrs of Vital Signs/I&O Vital Signs Date Time Temp Pulse Resp B/P B/P Pulse O2 O2 Flow FiO2 Mean Ox Delivery Rate 07/14 0716 98.5 102 20 140/80 94 Nasal 3.0L Cannula 07/14 0000 Nasal 2.0L Cannula 07/13 2224 98.5 109 20 150/64 95 07/13 1610 99.5 07/13 1600 Nasal 2.0L Cannula 07/13 1548 99.5 07/13 1430 100.1 115 20 150/80 93 07/13 1416 101.1 07/13 1000 128/60 Intake & Output 07/14 1600 07/14 0800 07/14 0000 Intake Total 480 Output Total 800 Balance -320 Intake, Oral 480 Output, Urine 800 Physical Exam General Appearance: well developed/nourished, no apparent distress, alert, awake Head: atraumatic, normal appearance Cardiovascular: regular rate/rhythm Respiratory: normal breath sounds Peripheral Pulses: 2+ radial (R), 2+ radial (L) Abdomen: normal bowel sounds, soft, non-tender Back: dressing present, dry, no discharge noted. Current Medications: Current Medications Sig/Lillian Start time Last Medication Dose Route Stop Time Status Admin Acetaminophen 650 MG .STK-MED ONE 07/13 1417 DC PO 07/13 1418 Acetaminophen 650 MG Q4P PRN 07/12 1630 AC 07/13 PO 1416 Bisacodyl 5 MG DAILY PRN 07/12 1845 AC PO Bisacodyl 10 MG DAILY NEEDED PRN 07/12 1630 AC MT Calcium 600 MG BID 07/12 220 AC 07/13 PO 202 Cholecalciferol 1,000 IU DAILY 07/13 1000 AC 07/13 PO 0753 Docusate Sodium 100 MG TID 07/12 2200 AC 07/13 PO 202 Hydromorphone HCl 0.6 MG Q4P PRN 07/12 1645 AC 07/14 IV 0647 Hydromorphone HCl 2 MG Q3P PRN 07/12 1645 AC PO Hydromorphone HCl 4 MG Q3P PRN 07/12 1645 AC 07/13 PO 2127 Insulin Aspart 0 TIDAC 07/13 0800 AC 07/13 SC 1805 Magnesium Hydroxide 30 ML AT BEDTIME PRN 07/12 1645 AC PO Multivitamins 1 TAB DAILY 07/13 1000 AC 07/13 PO 0753 Ondansetron HCl 4 MG Q6P PRN 07/12 1630 AC 07/14 IV 0114 Patient Medication 1 ED ONE ONE 07/13 1415 DC 07/14 Teaching ED 07/13 1416 0752 Senna/Docusate Sodium 2 TAB DAILY PRN 07/12 1845 AC PO Tamsulosin HCl 0.4 MG DAILY 07/13 1000 AC 07/13 PO 0754 Trimethobenzamide HCl 200 MG Q6P PRN 07/12 1630 AC IM Results Last 24 Hrs Lab/Lico Results: Laboratory Tests 07/13/16 1714: Urine Color YEL, Urine Clarity CLEAR, Urine pH 6.0, Ur Specific [place] 1.020, Urine Protein NEG, Urine Ketones NEG, Urine Nitrite NEG, Urine Bilirubin NEG, Urine Urobilinogen 0.2, Ur Leukocyte Esterase NEG, Ur Microscopic SEDIMENT EXAMINED, Urine RBC 1-3, Urine WBC 1-3 H, Urine Hemoglobin TRACE-LYSED H, Urine Glucose 100 H 07/13/16 1700: Pulse Ox Probe Site RF, ABG O2 Sat Calc/Silvia 94.0, O2 Concentration % 4L, O2 Delivery Method N/C ERIN TUCKER,AARTI 07/14/16 1356: Attending MD Review Statement Attending Sign Off Attending Cosign Statement: I have: examined this patient, [facility], personally reviewd images, discussd w/resident/PA/STRUCTURAL STEEL FITTER, discussed mgmt plan w/alek, discussed mgmt plan w/pt, agreed w/resident/PA/STRUCTURAL STEEL FITTER, amended to note. Other Findings: Patient seen and examined, initially when I went in the morning he was sleeping. I went back and at that point he was awake. He is not feeling well at all. He 's complaining of a lot of pain. But his , he had difficult time sleeping last night. He did receive Valium. Patient also has a low-grade temp. He continues to remain hypoxic and he still tachycardic. He is not moving. Vital Signs Date Time Temp Pulse Resp B/P B/P Pulse O2 O2 Flow FiO2 Mean Ox Delivery Rate 07/14 1153 99.9 92 20 134/78 94 Nasal 2.0L Cannula 07/14 0800 Nasal 3.0L Cannula 07/14 0716 98.5 102 20 140/80 94 Nasal 3.0L Cannula 07/14 0000 Nasal 2.0L Cannula 07/13 2224 98.5 109 20 150/64 95 07/13 1610 99.5 07/13 1600 Nasal 2.0L Cannula 07/13 1548 99.5 07/13 1430 100.1 115 20 150/80 93 07/13 1416 101.1 on exam; aox3, mild distress 2/2 to pain. cv; s1,s2, rrr, tachycardic. resp; clear abd; soft, nt, bs+ ext; no edema. back: + dressing at lower back. Laboratory Tests 07/14 07/14 1343 1150 Chemistry Sodium Pending Potassium Pending Chloride Pending Carbon Dioxide Pending Anion Gap Pending BUN Pending Creatinine Pending BUN/Creatinine Ratio Pending Hematology CBC w Diff NO MAN DIFF REQ WBC (4.8 - 10.8 /CUMM) 17.0 H RBC (4.70 - 6.10 /CUMM) 3.47 L Hgb (14.0 - 18.0 G/DL) 10.7 L Hct (42 - 52 %) 31.5 L MCV (80.0 - 94.0 FL) 91.0 MCH (27.0 - 31.0 PG) 30.8 RDW (11.5 - 14.5 %) 13.6 Plt Count (130 - 400 /CUMM) 178 MPV (7.4 - 10.4 FL) 8.7 Gran % (42.2 - 75.2 %) 73.5 Lymphocytes % (20.5 - 51.1 %) 19.0 L Monocytes % (1.7 - 9.3 %) 7.2 Eosinophils % (0 - 5 %) 0.1 Basophils % (0.0 - 2.0 %) 0.2 Absolute Granulocytes (1.4 - 6.5 /CUMM) 12.5 H Absolute Lymphocytes (1.2 - 3.4 /CUMM) 3.2 Absolute Monocytes (0.10 - 0.60 /CUMM) 1.2 H Absolute Eosinophils (0.0 - 0.7 /CUMM) 0 Absolute Basophils (0.0 - 0.2 /CUMM) 0 PUBS MCHC (33.0 - 37.0 G/DL) 33.8 07/13 07/13 1714 1700 Blood Gas Pulse Ox Probe Site RF ABG O2 Sat Calc/Silvia (92.0 - 96.0 %) 94.0 O2 Concentration % 4L O2 Delivery Method N/C Urines Urine Color (YEL,AMB,STR) YEL Urine Clarity (CLEAR) CLEAR Urine pH (5.0 - 8.0) 6.0 Ur Specific [place] (1.001 - 1.035) 1.020 Urine Protein (NEG,<30 MG/DL) NEG Urine Ketones (NEG) NEG Urine Nitrite (NEG) NEG Urine Bilirubin (NEG) NEG Urine Urobilinogen (0.1 - 1.0 EU/dl) 0.2 Ur Leukocyte Esterase (NEG) NEG Ur Microscopic SEDIMENT EXAMINED Urine RBC (0 - 5 /HPF) 1-3 Urine WBC (0 - 2 /HPF) 1-3 H Urine Hemoglobin (NEG) TRACE-LYSED H Urine Glucose (N MG/DL) 100 H Assessment and recommendations: Patient is a 65-year-old male with pmh sig for diabetes, currently being maintained on Januvia, benign prostate hyperplasia, with the past surgical history of bilateral rotator cuff tear, tonsillectomy in the past who presented to the [facility] after he was seen in the same day surgery for laminectomy (Dr. Rico Roque [facility]). Postoperatively medical team was consulted with co management of the patient's medical issues. Patient continues to remain hypoxic and tachycardic, he is not moving much and claims that his pain is not well controlled. At this point recommend adequate pain control. Would recommend getting a BMP and if creatinine is normal and then proceed with CTA of the chest to rule out PE. Patient needs to admitted with physical therapy and use incentive spirometer. Blood sugars are in acceptable range. Continues to have leukocytosis which could be related to stress in the postoperative period. Urinalysis yesterday was normal. We will follow-up on the chest CTA. Continue other current meds. DVT Px; ALPS per spine surgery. D/W pt's at bedside.
--- NOTE | 2016-07-14 10:43 | PN- Orthopedic ---
Subjective Subjective: Pt. and report significant back pain over night despite Dilaudid. Pt. did not sleep " all night", couldn't find comortable position States that Dialudid was making him drowsy without relief of pain This morning pt. received Valium in addition to narcotics, which helped slightly only. Objective Vital Signs and I&Os Vital Signs Date Time Temp Pulse Resp B/P B/P Pulse O2 O2 Flow FiO2 Mean Ox Delivery Rate 07/14 0716 98.5 102 20 140/80 94 Nasal 3.0L Cannula 07/14 0000 Nasal 2.0L Cannula 07/13 2224 98.5 109 20 150/64 95 07/13 1610 99.5 07/13 1600 Nasal 2.0L Cannula 07/13 1548 99.5 07/13 1430 100.1 115 20 150/80 93 07/13 1416 101.1 Intake & Output 07/14 1600 07/14 0800 07/14 0000 07/13 1600 07/13 0800 07/13 0000 Intake Total 480 900 800 Output Total 800 600 Balance -320 300 800 Intake, IV 800 800 Intake, Oral 480 100 Number 0 Bowel Movements Output, Urine 800 600 Patient 240 lb Weight Drowsy, but alert when awakened, appropriate, answering questions. Looks somewhat uncomfortable. Lying on his R side for better comfort Cor rgeular Lungs clear Back with large dressing over lower back, clean, dry, intact. Bilat. LE warm , perfused. Good sensation bilat. Limited ROM , unable to test secondary to pt. position and pain. Assessment/Plan Assessment/Plan s/p Lumbar lami POD #2 Gross neurovascular check is intact Wound site with dressing apperas intact without erythrema or infection Pain is a major issue. Consider changing narcotic . Continue Valium. Increase mobility as pain better controlled Leukocytosis. Declining yesterday. Will get follow up CBC for today. Medical team involved in management of DM , hypoxia and leukocytosis. I suspect hypoxia may be partially related to poor inspiratory effort due to poor pain control. Will discuss further plan with surgeon and team. Will follow up CBC results. Core Measures/Miscellaneous Venous Thromboembolism VTE Risk Factors: Age > 40, Surgery VTE Contraindications: No Contraindications VTE Diagnosis: No Beta Javier Is Beta Javier a Home Med? No Antibiotics Is Patient on Antibiotics? Yes If Yes: prophylaxis
--- NOTE | 2016-07-14 11:38 | NUR ---
Physical therapy: Patient approached for PT this AM. Patient refusing PT at this time due to ongoing, severe pain. Will follow up this PM as appropriate. Thank you.
[2016-07-14 13:30] LABS: ABSOLUTE BASOPHIL COUNT 0 /CUMM (0.0-0.2); ABSOLUTE EOSINOPHIL COUNT 0 /CUMM (0.0-0.7); ABSOLUTE GRANULOCYTE CT 12.5 /CUMM (1.4-6.5); ABSOLUTE LYMPH COUNT 3.2 /CUMM (1.2-3.4); ABSOLUTE MONOCYTE COUNT 1.2 /CUMM (0.10-0.60); BASOPHIL % 0.2 % (0.0-2.0); EOSINOPHIL % 0.1 % (0-5); GRANULOCYTE % 73.5 % (42.2-75.2); HEMATOCRIT 31.5 % (42-52); MEAN CORPUSCULAR HGB 30.8 PG (27.0-31.0); MEAN CORPUSCULAR HGB CONC 33.8 G/DL (33.0-37.0); MEAN PLATELET VOLUME 8.7 FL (7.4-10.4); PLATELET COUNT 178 /CUMM (130-400); RBC DISTRIBUTION WIDTH 13.6 % (11.5-14.5); RED BLOOD CELL CT 3.47 /CUMM (4.70-6.10)
--- NOTE | 2016-07-14 18:36 | CT SCAN REPORT ---
EXAMINATION: CT ANGIOGRAM OF THE CHEST WITH AND WITHOUT CONTRAST (CT PULMONARY ANGIOGRAM FOR PE) CLINICAL INFORMATION: Evaluate for pulmonary embolism. Tachycardia postoperative. COMPARISON: Chest x-ray 07/12/2016. TECHNIQUE: Prior to contrast administration, noncontrast localization images were obtained. Subsequently, multidetector volumetric imaging was performed from the thoracic inlet to below the diaphragms following the administration of 95 mL Optiray 320 intravenous contrast. No contrast reaction reported. Sagittal, coronal, and MIP oblique sagittal reformatted images were obtained on the CT workstation, uploaded to PACS, and reviewed. Total exam dose-length product 537 mGy-cm. FINDINGS: QUALITY OF STUDY/CONTRAST BOLUS: Satisfactory PULMONARY ARTERIES: Decreased enhancement with possible defect in the distal interlobar branches to the right upper lobe, suspicious but not definitive for a peripheral embolus. No central clot. THORACIC AORTA: No aneurysm or dissection. LUNG: Pleural-based consolidation in the right lower lobe and right middle lobe most likely atelectasis. Minimal linear atelectasis at the left base left lower lobe. PLEURA: No pleural effusion or pneumothorax. MEDIASTINUM: Normal heart size. No pericardial effusion. No hilar or mediastinal lymphadenopathy. No evidence of septal bowing or right heart strain. CHEST WALL/AXILLA: No axillary or internal mammary lymphadenopathy. OSSEOUS STRUCTURES: Spondylosis of the dorsal spine. UPPER ABDOMEN: Unremarkable. No reflux of contrast into the hepatic veins to suggest elevated right heart pressures. IMPRESSION: Equivocal findings in the peripheral interlobar branches to the right upper lobe. Possible but not definitive peripheral emboli, no central clot. Pleural-based atelectasis in the right middle lobe and right lower lobe. Minimal linear atelectasis in the left lower lobe.
--- NOTE | 2016-07-14 19:00 | NUR ---
NURSING NOTE: PT TRANSFERED TO 206 FORM 2NA AT 1450. PT A&O, VSS CHARTED. PT AND ORIENTED TO ROOM AND CALL TURCIOS. PT AND EDUCATED ON THE NEED FOR AMBULATION AND PT AGREEABLE TO ATTEMPT TO GET OOB. PT MEDICATED FOR PAIN 6/10 AT 1545 WITH PO DILAUDID ORDERED. AT 1630 PT REFUSING TO TRY TO GET OOB WITH NURSING AND SUPERVISOR SAMPLE, BUT AGREES THAT HE WILL TRY IN 1/2 HR. PT EDUCATED ON THE NEED FOR AMBULATION AND THE RISK OF COMPLICATIONS THAT MAY OCCUR WHEN A POST-OP PT REMAINS SEDENTARY. AT 1700 TRANSPORT ARRIVED TO FLOOR TO TAKE PT FOR CTA ORDERED BY SURGICAL PA. PT RETURNED TO FLOOR AT 1750 AT THIS TIME NURSING AND MST ATTEMPTED TO GET PT OOB. PT WAS ABLE TO GET TO SIDE OF BED WITH SOME ASSISTANCE BUT REFUSED TO TRY TO STAND OR AMBULAT TO CHAIR STATING THAT "I DON'T WANT TO STRAIN MY BACK AND I JUST WANT TO LAY DOWN" MULTIPLE ATTEMPT WERE MADE BY NURSING AND MST TO STAND AND PT CONTIUED TO RESIST. PT ONCE AGAIN EDUCATED ON THE CONSEQUENCES OF NOT GETTING OUT OF BED. SPOKE TO INEZ FRANK AT 1850 READ RESULTS OF CTA TO HER. AT THIS TIME INEZ FRANK ALSO MADE AWARE OF THE MULTIPLE ATTEMPTS TO GET PT OOB. WILL CONTIUE TO MONITOR.
--- NOTE | 2016-07-14 20:57 | NUR ---
ATTEMPT MADE TO AMBULATE PT, BUT PT VERY RELUCTANT TO EVEN GET OOB AT THIS TIME R/T PAIN WITH MOVEMENT. EXPLAINED TO PT THE IMPORTANCE OF AMBULATION AND MOVING FOLLOWING SURGERY, PT VERBALIZES UNDERSTANDING AND INSISTANT HE IS UNABLE TO AT THIS TIME. PT AGREED TO STAND AT SIDE OF BED WITH ASSISTANCE. PT SAT UP IN BED WITH MAX ASSIST OF 3, AFTER SITTING AT EDGE OF BED FOR APPROX 3 MINUTES PT STATES HE CANNOT STAND AND LAID BACK DOWN. PT REPOSITIONED FOR COMFORT. IMPORTANCE FOR PT TO MOVE AND AMBULATE REITERATED AND PT VERABLIZED UNDERSTANDING. IST USED WITH ASSISTANCE AT THIS TIME. WILL MONITOR.
--- NOTE | 2016-07-14 22:17 | Event Note ---
Event Note Event Note: Upon request of the medical team a CTA was ordered to rule out pulmonary emboli. The results of the CAT scan were as follows IMPRESSION: Equivocal findings in the peripheral interlobar branches to the right upper lobe. Possible but not definitive peripheral emboli, no central clot. Pleural-based atelectasis in the right middle lobe and right lower lobe. Minimal linear atelectasis in the left lower lobe. The case was discussed with the MOD and the medical attending on-call and it was felt given the low probability of pulmonary emboli and the extraordinary risk of anticoagulating given the recent surgical procedure. No anticoagulation would be warranted at the current time. The patient has been asymptomatic and oxygenating well and remains hemodynamically stable.
[2016-07-15 06:22] VITALS: BP 148/80
--- NOTE | 2016-07-15 07:44 | PN- Medicine Consult ---
ALEJANDRA AMAYA 07/15/16 0742: Assessment/Plan Assessment/Plan Assessment: This is a 65-year-old male with past medical history of diabetes, BPH, obstructive sleep apnea, not using CPAP at home, came in to [facility] for surgical management of disc herniation and spinal stenosis is status post spinal decompression surgery and laminectomy from L3 to S1, day 3 today.Medical team was consulted for management of DM, acute hypoxic respiratory failure and luecocytosis. On admission - relevant labs were white count of 24.7, no bands, H&H 13.6/41.2. Patient was afebrile, initially, the patient became hypoxic, however, later he was stabilized on 95% on 3 L of nasal cannula. He continues to saturate 95% on 3 L. Pulse rate around 99, respiration 15,patient in significant pain, his white count did come down, however she continues to spike fever overnight. CTA was equivocla for pe, no central pe but cannot rule out peripheral pe, patient cannot be on AC 2/2 to recent surgery.We will need to repeat blood work today and send blood cultures to rule out fever 2/2 to infection. Earlier UA and CXR was negative for infection. Problem list along with assessment and plan. Problem #1.Spinal disc herniation and spinal stenosis status post spinal decompression and laminectomy from L3 to S5. Problem #2 Acute hypoxic respiratory failure status post surgery and anesthesia, rule out PE. Problem #3 Chronic diabetes mellitus. Problem #4 Obstructive sleep apnea (not using CPAP) Problem #5 Luecocytosis most likely reactive secondary to surgery. Problem #6.History of BPH Problem #7 Postop fever Plan: * Patient in signigficant amount of pain ,recieved 4 mg po dilaudid given by pa, was started on gabapentin * The tachycardia and high systolic bp possible 2/2 to pain, ct to monitor, however PE was another possibility and CTA was done to rule out PE, which was equivocal,there was no central pe, but peripheral pe couldnt be completely ruled out, patient cannot be on AC 2/2 to recent surgery, US doppler b/l lower extremity pending. * continues to spike fever, please send today labwork and blood cultures. * Continue NovoLog sliding scale. * Continue to monitor fingersticks. * Continue Flomax for BPH. * Continue CPAP at night for obstructive sleep apnea. * Continue incentive spirometry. * Out of bed to chair. * Ambualte as tolerated * PT evaluation. * DVt PX with ALPS Problem List: 1. Diabetes 2. Spinal stenosis 3. Leucocytosis 4. S/P laminectomy with spinal fusion Subjective Subjective: i have seen and examined the patient today morning. Review of Systems Constitutional: Reports: see HPI. EENTM: Denies: blurred vision, double vision, visual changes. Cardiovascular: Denies: chest pain, edema, orthopena, palpitations. Respiratory: Denies: cough, hemoptysis, orthopnea, short of breath. Gastrointestinal: Reports: see HPI. Genitourinary: Reports: no symptoms. Musculoskeletal: Reports: back pain, muscle pain. Skin: Reports: no symptoms. Neurological/Psychological: Reports: no symptoms. Hematologic/Endocrine: Reports: no symptoms. Immunologic/Allergic: Reports: no symptoms. Objective Last 24 Hrs of Vital Signs/I&O Vital Signs Date Time Temp Pulse Resp B/P B/P Pulse O2 O2 Flow FiO2 Mean Ox Delivery Rate 07/15 0622 98.8 96 20 148/80 94 Room Air 07/14 2330 100.5 07/14 2236 101.1 07/14 1943 98.1 106 18 148/62 94 Room Air Room Air 07/14 1914 97.7 108 20 178/60 94 07/14 1800 98.2 86 18 110/58 94 Room Air Room Air 07/14 1616 102 20 128/70 95 07/14 1600 96 Nasal 1.0L Cannula 07/14 1453 98.6 101 18 114/60 95 Nasal 1.0L Cannula 07/14 1153 99.9 92 20 134/78 94 Nasal 2.0L Cannula 07/14 0800 Nasal 3.0L Cannula Intake & Output 07/15 0800 07/15 0000 07/14 1600 Intake Total 800 640 Output Total 900 900 Balance -100 -260 Intake, IV 80 Intake, Oral 720 640 Number 0 Bowel Movements Output, Urine 900 900 Physical Exam General Appearance: well developed/nourished, anxious Head: atraumatic, normal appearance Ears, Nose, Throat: normal pharynx Neck: normal inspection Cardiovascular: regular rate/rhythm Respiratory: normal breath sounds Peripheral Pulses: 2+ radial (R), 2+ radial (L) Abdomen: normal bowel sounds, soft, non-tender Back: dressing done, clean, not soaked, patient staying in lside lying position as this is the most comfortable position for pain Extremities: normal inspection, normal capillary refill Current Medications: Current Medications Sig/Lillian Start time Last Medication Dose Route Stop Time Status Admin Acetaminophen 650 MG .STK-MED ONE 07/14 1111 DC PO 07/14 1112 Acetaminophen 650 MG Q4P PRN 07/12 1630 AC 07/14 PO 2236 Bisacodyl 5 MG DAILY PRN 07/12 1845 AC 07/14 PO 1112 Bisacodyl 10 MG DAILY NEEDED PRN 07/12 1630 AC HI Calcium 600 MG BID 07/12 2200 AC 07/14 PO 2137 Cholecalciferol 1,000 IU DAILY 07/13 1000 AC 07/14 PO 1112 Diazepam 5 MG TID 07/14 0915 DC 07/14 PO 0914 Docusate Sodium 100 MG TID 07/12 2200 AC 07/14 PO 2137 Gabapentin 100 MG Q8H 07/15 0130 AC 07/15 PO 0643 Hydromorphone HCl 0.6 MG Q4P PRN 07/12 1645 AC 07/15 IV 0643 Hydromorphone HCl 2 MG Q3P PRN 07/12 1645 AC 07/14 PO 1545 Hydromorphone HCl 4 MG Q3P PRN 07/12 1645 AC 07/14 PO 1934 Insulin Aspart 0 TIDAC 07/13 0800 AC 07/14 SC 1823 Magnesium Hydroxide 30 ML .STK-MED ONE 07/14 2133 DC PO 07/14 2134 Magnesium Hydroxide 30 ML AT BEDTIME PRN 07/12 1645 AC 07/14 PO 2140 Multivitamins 1 TAB DAILY 07/13 1000 AC 07/14 PO 1112 Ondansetron HCl 4 MG Q6P PRN 07/12 1630 AC 07/15 IV 0643 Senna/Docusate Sodium 2 TAB DAILY PRN 07/12 1845 AC 07/14 PO 1545 Tamsulosin HCl 0.4 MG DAILY 07/13 1000 AC 07/14 PO 1112 Trimethobenzamide HCl 200 MG Q6P PRN 07/12 1630 AC IM Results Last 24 Hrs Lab/Lico Results: Laboratory Tests 07/14/16 1343: Anion Gap 9, Estimated GFR > 60, BUN/Creatinine Ratio 11.3 07/14/16 1150: CBC w Diff NO MAN DIFF REQ, RBC 3.47 L, MCV 91.0, MCH 30.8, RDW 13.6, MPV 8.7, Gran % 73.5, Lymphocytes % 19.0 L, Monocytes % 7.2, Eosinophils % 0.1, Basophils % 0.2, Absolute Granulocytes 12.5 H, Absolute Lymphocytes 3.2, Absolute Monocytes 1.2 H, Absolute Eosinophils 0, Absolute Basophils 0, PUBS MCHC 33.8 AARTI KHAN MD 07/15/16 1157: Attending MD Review Statement Attending Sign Off Attending Cosign Statement: I have: examined this patient, reviewed aval EMR data, personally reviewd images, discussd w/resident/PA/PRODUCT PICKER, discussed mgmt plan w/alek, discussed mgmt plan w/pt, agreed w/resident/PA/PRODUCT PICKER, amended to note. Other Findings: Patient seen and examined, was still very sleepy. He had a lower extremity Doppler done which was negative for DVT. Vital Signs Date Time Temp Pulse Resp B/P B/P Pulse O2 O2 Flow FiO2 Mean Ox Delivery Rate 07/15 0842 88 142/88 07/15 0622 98.8 96 20 148/80 94 Room Air 07/14 2330 100.5 07/14 2236 101.1 07/14 1943 98.1 106 18 148/62 94 Room Air Room Air 07/14 1914 97.7 108 20 178/60 94 07/14 1800 98.2 86 18 110/58 94 Room Air Room Air 07/14 1616 102 20 128/70 95 07/14 1600 96 Nasal 1.0L Cannula 07/14 1453 98.6 101 18 114/60 95 Nasal 1.0L Cannula on exam; aox3, nad. cv; s1,s2, rrr resp; clear abd; soft, nt, bs+ ext: no edema. back: + dressing on the back. Laboratory Tests 07/15 07/14 0915 1343 Chemistry Sodium (137 - 145 mmol/L) 132 L 132 L Potassium (3.5 - 5.1 mmol/L) 3.5 3.7 Chloride (98 - 107 mmol/L) 87 L 90 L Carbon Dioxide (22 - 30 mmol/L) 34 H 34 H Anion Gap (5 - 16) 11 9 BUN (9 - 20 mg/dL) 10 9 Creatinine (0.7 - 1.2 mg/dL) 0.7 0.8 Estimated GFR (>60 ml/min) > 60 > 60 BUN/Creatinine Ratio (7 - 25 %) 14.3 11.3 Phosphorus (2.5 - 4.5 mg/dL) 3.2 Magnesium (1.6 - 2.3 mg/dL) 1.8 Hematology CBC w Diff NO MAN DIFF REQ WBC (4.8 - 10.8 /CUMM) 16.0 H RBC (4.70 - 6.10 /CUMM) 3.49 L Hgb (14.0 - 18.0 G/DL) 10.5 L Hct (42 - 52 %) 31.9 L MCV (80.0 - 94.0 FL) 91.2 MCH (27.0 - 31.0 PG) 30.1 RDW (11.5 - 14.5 %) 13.4 Plt Count (130 - 400 /CUMM) 182 MPV (7.4 - 10.4 FL) 9.0 Gran % (42.2 - 75.2 %) 86.5 H Lymphocytes % (20.5 - 51.1 %) 8.6 L Monocytes % (1.7 - 9.3 %) 4.3 Eosinophils % (0 - 5 %) 0.1 Basophils % (0.0 - 2.0 %) 0.5 Absolute Granulocytes (1.4 - 6.5 /CUMM) 13.8 H Absolute Lymphocytes (1.2 - 3.4 /CUMM) 1.4 Absolute Monocytes (0.10 - 0.60 /CUMM) 0.7 H Absolute Eosinophils (0.0 - 0.7 /CUMM) 0 Absolute Basophils (0.0 - 0.2 /CUMM) 0.1 PUBS MCHC (33.0 - 37.0 G/DL) 33.0 Assessment and recommendations: Patient is a 65-year-old male with pmh sig for diabetes, currently being maintained on Januvia, benign prostate hyperplasia, with the past surgical history of bilateral rotator cuff tear, tonsillectomy in the past who presented to the [facility] after he was seen in the same day surgery for laminectomy (Dr. Rico Roque [facility] orthopedics). Postoperatively medical team was consulted with co management of the patient's medical issues. Chest CTA was between local and lower extremity Doppler negative. We will not start on any indicated lesion at this time as low probability for PE. Hypoxia and heart rate has improved. Patient spiked fever last night and this morning. Blood cultures have been ordered. Patient should be monitored denies fever spikes are down. Abbreviated depleting potassium. Can resume his Januvia for better blood sugar control. For pain management he is on Dilaudid. He's feeling nauseous at times. He should be started on antiemetics as needed. DVT px; ALPS.
--- NOTE | 2016-07-15 07:45 | PN- Orthopedic ---
Subjective Subjective: POD #3 s/p L5-S1 lumbar laminectomy with ICBG. Assist of 3. Complains of nausea overnight, has not vomited. Denies CP/SOB. Febrile to 101.1F overnight, given Tylenol and temperature defervesced. Urinating spontaneously. Objective Vital Signs and I&Os Vital Signs Date Time Temp Pulse Resp B/P B/P Pulse O2 O2 Flow FiO2 Mean Ox Delivery Rate 07/15 621 98.8 96 20 148/80 94 Room Air 07/14 2330 100.5 07/14 2236 101.1 07/14 1943 98.1 106 18 148/62 94 Room Air Room Air 07/14 1914 97.7 108 20 178/60 94 07/14 1800 98.2 86 18 110/58 94 Room Air Room Air 07/14 1616 102 20 128/70 95 07/14 1600 96 Nasal 1.0L Cannula 07/14 1453 98.6 101 18 114/60 95 Nasal 1.0L Cannula 07/14 1153 99.9 92 20 134/78 94 Nasal 2.0L Cannula 07/14 0800 Nasal 3.0L Cannula Intake & Output 07/15 0800 07/15 0000 07/14 1600 07/14 0800 07/14 0000 07/13 1600 Intake Total 800 640 480 Output Total 900 900 800 300 Balance -100 -260 -320 -300 Intake, IV 80 Intake, Oral 720 640 480 Number 0 Bowel Movements Output, Urine 900 900 800 300 Physical Exam: Gen: AAOx3 in NAD Cor: S1+S2+ Lungs: CTA carlyn Abd: rotund, NT, +BS x4 Back: incisional dressing removed and replaced. Incision C/D/I with allen. No surrounding erythema or drainage noted. Ext: palpable DP pulses carlyn. Feet warm. Dorsiflexion and plantar flexion C/D/ I. Current Medications: Current Medications Sig/Lillian Start time Last Medication Dose Route Stop Time Status Admin Acetaminophen 650 MG .STK-MED ONE 07/14 1111 DC PO 07/14 111 Acetaminophen 650 MG Q4P PRN 07/12 1630 AC 07/14 PO 223 Bisacodyl 5 MG DAILY PRN 07/12 1845 AC 07/14 PO 111 Bisacodyl 10 MG DAILY NEEDED PRN 07/12 1630 AC WA Calcium 600 MG BID 07/12 2199 AC 07/14 PO 213 Cholecalciferol 1,000 IU DAILY 07/13 1000 AC 07/14 PO 1112 Diazepam 5 MG TID 07/14 0915 DC 07/14 PO 0914 Docusate Sodium 100 MG TID 07/12 2200 AC 07/14 PO 2137 Gabapentin 100 MG Q8H 07/15 0130 AC 07/15 PO 0643 Hydromorphone HCl 0.6 MG Q4P PRN 07/12 1645 AC 07/15 IV 0643 Hydromorphone HCl 2 MG Q3P PRN 07/12 1645 AC 07/14 PO 1545 Hydromorphone HCl 4 MG Q3P PRN 07/12 1645 AC 07/14 PO 1934 Insulin Aspart 0 TIDAC 07/13 0800 AC 07/14 SC 1823 Magnesium Hydroxide 30 ML .STK-MED ONE 07/14 2132 DC PO 07/14 213 Magnesium Hydroxide 30 ML AT BEDTIME PRN 07/12 1645 AC 07/14 PO 2140 Multivitamins 1 TAB DAILY 07/13 1000 AC 07/14 PO 1112 Ondansetron HCl 4 MG Q6P PRN 07/12 1630 AC 07/15 IV 0643 Senna/Docusate Sodium 2 TAB DAILY PRN 07/12 1845 AC 07/14 PO 1545 Tamsulosin HCl 0.4 MG DAILY 07/13 1000 AC 07/14 PO 1112 Trimethobenzamide HCl 200 MG Q6P PRN 07/12 1630 AC IM Results Last 48 Hours of Labs: Laboratory Tests 07/14 07/14 1343 1150 Chemistry Sodium (137 - 145 mmol/L) 132 L Potassium (3.5 - 5.1 mmol/L) 3.7 Chloride (98 - 107 mmol/L) 90 L Carbon Dioxide (22 - 30 mmol/L) 34 H Anion Gap (5 - 16) 9 BUN (9 - 20 mg/dL) 9 Creatinine (0.7 - 1.2 mg/dL) 0.8 Estimated GFR (>60 ml/min) > 60 BUN/Creatinine Ratio (7 - 25 %) 11.3 Hematology CBC w Diff NO MAN DIFF REQ WBC (4.8 - 10.8 /CUMM) 17.0 H RBC (4.70 - 6.10 /CUMM) 3.47 L Hgb (14.0 - 18.0 G/DL) 10.7 L Hct (42 - 52 %) 31.5 L MCV (80.0 - 94.0 FL) 91.0 MCH (27.0 - 31.0 PG) 30.8 RDW (11.5 - 14.5 %) 13.6 Plt Count (130 - 400 /CUMM) 178 MPV (7.4 - 10.4 FL) 8.7 Gran % (42.2 - 75.2 %) 73.5 Lymphocytes % (20.5 - 51.1 %) 19.0 L Monocytes % (1.7 - 9.3 %) 7.2 Eosinophils % (0 - 5 %) 0.1 Basophils % (0.0 - 2.0 %) 0.2 Absolute Granulocytes (1.4 - 6.5 /CUMM) 12.5 H Absolute Lymphocytes (1.2 - 3.4 /CUMM) 3.2 Absolute Monocytes (0.10 - 0.60 /CUMM) 1.2 H Absolute Eosinophils (0.0 - 0.7 /CUMM) 0 Absolute Basophils (0.0 - 0.2 /CUMM) 0 PUBS MCHC (33.0 - 37.0 G/DL) 33.8 07/13 07/13 1714 1700 Blood Gas Pulse Ox Probe Site RF ABG O2 Sat Calc/Silvia (92.0 - 96.0 %) 94.0 O2 Concentration % 4L O2 Delivery Method N/C Urines Urine Color (YEL,AMB,STR) YEL Urine Clarity (CLEAR) CLEAR Urine pH (5.0 - 8.0) 6.0 Ur Specific [place] (1.001 - 1.035) 1.020 Urine Protein (NEG,<30 MG/DL) NEG Urine Ketones (NEG) NEG Urine Nitrite (NEG) NEG Urine Bilirubin (NEG) NEG Urine Urobilinogen (0.1 - 1.0 EU/dl) 0.2 Ur Leukocyte Esterase (NEG) NEG Ur Microscopic SEDIMENT EXAMINED Urine RBC (0 - 5 /HPF) 1-3 Urine WBC (0 - 2 /HPF) 1-3 H Urine Hemoglobin (NEG) TRACE-LYSED H Urine Glucose (N MG/DL) 100 H Assessment/Plan Assessment/Plan A: POD #3 s/p L5-S1 lumbar laminectomy; febrile to 101F although source unclear- unlikely SSI as incision without erythema or fluctuance, unlikely UTI as U/A grossly negative and CXR clear. CTa chest equivocal for PE.. Plan: Bilateral DVT study today. OOB with PT. Will need STR upon discharge. Zofran prn nausea. No further narcotics D/T somnelence. Will d/c IV Dilaudid. Core Measures/Miscellaneous Venous Thromboembolism VTE Risk Factors: Age > 40, Surgery VTE Contraindications: No Contraindications VTE Diagnosis: No Beta Javier Is Beta Javier a Home Med? No Antibiotics Is Patient on Antibiotics? Yes If Yes: prophylaxis
--- NOTE | 2016-07-15 07:50 | NUR ---
NURSING NOTE: PT OOB TO RECLINER WITH 2 PHYSICAL THERAPISTS. CHAIR ALARM IN PLACE. DULC SUPP GIVEN, PT USING INSENTIVE SPIR. DENIES NEED FOR PAIN MEDS/ICE/RICE SOCK AT THIS TIME. CONT TO MONITOR.
--- NOTE | 2016-07-15 09:14 | Surgical Discharge Summary ---
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 , Age 83. FATHER, , Age 50-60; Cause: Cancer. Psychosocial History Where Do You Live? Home Who Do You Live With? Family ETOH Use: occasional use Other Addictive Behavior: with 2 daughters and 2 grandchildren Review of Systems: see hpi Hospital Course Course Attending Physician: CRISTIAN ROQUE MD Primary Care Physician: UNKNOWN Hospital Course: Patient is a 65 year old male with a past medical history significant for hypertension, BPH, chronic back pain who was found to have a disc herniation and spinal stenosis with lateral herniation L3 4 central stenosis L4 5 degenerative stenosis L5-S1. He underwent a lumbosacral decompression with laminectomies L3 4 -5,5-1 right side diagnosis right L3 nerve root and L4 nerve root. Instrumented lumbar fusion with pedicle screws L3 4 bilaterally. Bone graft fusion L34 L4 5 bilaterally with autologous morselized corticocancellous bone. Harvesting of iliac crest bone left posterior iliac crest. Reconstruction of donor site with Master graft implant. He did well intraoperatively and was transferred to the floor. His diet was advanced and his IVF were stopped. He had difficulty with managing pain. His hospital course was complicated by tachycardia and low oxygenation beginning on POD #2 and a medicine consultation was obtained. A CTa chest was performed to evaluate for PE, which was equivocal. He continued to have fevers of 101F, a urinalysis and CXR were negative. DVT studies were performed which are negative. BC obtained. WBC trending down. DW Dr Roque, PA Doug, pt stable for dc to snf today, 07/15/16 Allergies: Coded Allergies: codeine (Mild, nausea 06/22/16) Disposition Summary Disposition Principal Diagnosis: Right L3-4 disc herniation with L4-5 spinal stenosis/DDD sp posterior lumbar decompression and fusion L3-S1 with instrumentation and iliac crest bone grafting on 07/12/2016. Additional Diagnosis: post op fever, leukocytosis Discharge Disposition: SNF Discharge Instructions General Discharge Information Code Status: Full Code Patient's Diet: regular Patient's Activity: no lifting greater than 10 lbs activity with PT, oob as tolerated. Follow-Up Instructions/Appts: with Dr Roque Medications at Discharge Discharge Medications: Stop taking the following medications: Sitagliptin Phosphate (Januvia) 50 MG TABLET ORAL DAILY Echinacea Purpurea Root (Echinacea) 80 MG CAPSULE ORAL DAILY Coconut Oil (Coconut Oil) 1,000 MG CAPSULE ORAL TWICE DAILY Continue taking these medications: Tamsulosin HCl (Flomax) 0.4 MG CAP.ER.24H 1 Capsule ORAL DAILY Comments: Last Taken:07/15/16 Time: 0900AM Start taking the following new medications: [Tylenol] 650 Milligram ORAL EVERY 4 HOURS NEEDED as needed for TEMP > 101.5 No Refills Comments: Last Taken:07/14/16 Time: 1100AM Calcium Carbonate (Calcium Carbonate) 500 MG CALCIUM (1,250 MG) TABLET 600 Milligram ORAL TWICE DAILY Qty = 60 Refills = 1 Comments: Last Taken:07/15/16 Time: 0800AM Bisacodyl (Bisac-Evac) 10 MG SUPP.RECT 10 Milligram RECTALLY DAILY NEEDED as needed for CONSTIPATION Qty = 30 No Refills Comments: Last Taken: 07/15/16 Time: 0800AM Docusate Sodium (Docusate Sodium) 100 MG CAPSULE 100 Milligram ORAL THREE TIMES DAILY Qty = 60 No Refills Comments: Last Taken: 07/15/16 Time:0900AM Magnesium Hydroxide (Milk Of Magnesia) 400 MG/5 ML ORAL.SUSP 30 Milliliters ORAL AT BEDTIME as needed for CONSTIPATION Qty = 1 No Refills Comments: Last Taken:07/14/16 Time: 1100AM Sitagliptin Phosphate (Januvia) 100 MG TABLET 100 Milligram ORAL DAILY Qty = 30 Refills = 1 Comments: NOT GIVEN Cholecalciferol (Vitamin D3) 1,000 UNIT TABLET 1,000 International Unit ORAL DAILY Qty = 30 No Refills Comments: Last Taken:07/15/16 Time: 0900AM Multivitamin (One Daily Multivitamin) 1 EACH TABLET 1 Tablet ORAL DAILY Qty = 30 No Refills Comments: Last Taken:07/15/16 Time: 0900AM Gabapentin (Gabapentin) 100 MG CAPSULE 100 Milligram ORAL Q8H Qty = 90 Refills = 2 Comments: Last Taken:07/15/16 Time: 1230PM Hydromorphone HCl (Hydromorphone HCl) 2 MG TABLET 2 Milligram ORAL EVERY 3 HOURS NEEDED as needed for PAIN SCALE 1-3 (MILD) Qty = 90 No Refills Instructions: 1-2 TABS PO Q 4-6 HOURS PRN PAIN Comments: Last Taken: 07/14/16 Time:2200PM
--- NOTE | 2016-07-15 09:55 | NUR ---
NURSING NOTE: PT LEFT FLOOR VIA STRETCHER WITH DISTRBUTION FOR BLE US PER MD ORDER, PT AWAKE, A/OX3, ROOM AIR, DENIES COMPLAINTS, TICKET TO RIDE COMPLETE. AWAIT RETURN TO FLOOR
[2016-07-15 10:15] LABS: ABSOLUTE BASOPHIL COUNT 0.1 /CUMM (0.0-0.2); ABSOLUTE EOSINOPHIL COUNT 0 /CUMM (0.0-0.7); ABSOLUTE GRANULOCYTE CT 13.8 /CUMM (1.4-6.5); ABSOLUTE LYMPH COUNT 1.4 /CUMM (1.2-3.4); ABSOLUTE MONOCYTE COUNT 0.7 /CUMM (0.10-0.60); BASOPHIL % 0.5 % (0.0-2.0); EOSINOPHIL % 0.1 % (0-5); HEMATOCRIT 31.9 % (42-52); MEAN CORPUSCULAR HGB 30.1 PG (27.0-31.0); MEAN CORPUSCULAR VOLUME 91.2 FL (80.0-94.0); PLATELET COUNT 182 /CUMM (130-400); RBC DISTRIBUTION WIDTH 13.4 % (11.5-14.5); RED BLOOD CELL CT 3.49 /CUMM (4.70-6.10)
[2016-07-15 10:27] LABS: GRANULOCYTE % 86.5 % (42.2-75.2)
--- NOTE | 2016-07-15 10:37 | NUR ---
NURSING NOTE: PT BACK TO FLOOR FROM US, PT AWAKE, A/OX3, DENIES COMPLAINTS, SETTLED INTO BED PER HIS REQUEST, BED ALARM IN PLACE, CONT TO [facility]
--- NOTE | 2016-07-15 10:55 | ULTRASOUND REPORT ---
EXAMINATION: US TRIPLEX OF LOWER EXTREMITIES, BILATERAL CLINICAL INFORMATION: The vertex cardiac not on blood thinners with recent surgery, no history of blood clot, ower extremity edema. COMPARISON: None TECHNIQUE: Color-flow triplex imaging with spectral analysis and compression Doppler were performed on the lower extremities. Selected images are provided for interpretation. FINDINGS: Respiratory variation, normal compression and augmented flow are noted throughout the lower extremities. The visualized common femoral vein, superficial femoral vein, profunda femoral vein, popliteal vein and included midcalf deep venous segments show no evidence of deep venous thrombosis. There is no Yang's cyst. IMPRESSION: No evidence of deep venous thrombosis on the images provided.
[2016-07-15 11:59] VITALS: BP 132/70
[2016-07-15] MEDS ORDERED: JANUVIA100 M1 PO (12:29)
[2016-07-15] MEDS ORDERED: BISAC-EVAC10 M1 PR (12:29)
[2016-07-15] MEDS ORDERED: ONE DAILY MULT1 EAC2 PO (12:31)
[2016-07-15] MEDS ORDERED: MILK OF MA400 MG/52 PO (12:31)
[2016-07-15] MEDS ORDERED: VITAMIN D31000 UNI2 PO (12:32)
[2016-07-15] MEDS ORDERED: CALCIUM CARBON500 M2 PO (12:32)
[2016-07-15] MEDS ORDERED: DOCUSATE SODIU100 M3 PO (12:32)
[2016-07-15] MEDS ORDERED: GABAPENTIN100 M2 PO (12:32)
[2016-07-15 13:47] VITALS: BP 132/76
[2016-07-15 14:13] VITALS: BP 132/76
[2016-07-15] MEDS ORDERED: Tylenol PO (14:28)
== END 2016-07-15 15:46 | DRG 459 ==
LOC: SDA 00:56 → ENRESERV 16:24 → 2NA 18:02 → 2NB 07-14 13:46 → ENPENDDIS 07-15 09:25 → 2NB 07-15 15:46
PROVIDERS: Orthopaedic Surgery Orthopaedic Surgery of the Spine; Physician Assistant Surgical; ADMIT Orthopaedic Surgery Orthopaedic Surgery of the Spine
PROC: 0SB20ZZ Excision of Lumbar Vertebral Disc, Open Approach (ICD-10-PCS; principal; 2016-07-12)
PROC: 0QB30ZZ Excision of Left Pelvic Bone, Open Approach (ICD-10-PCS; principal; 2016-07-12)
PROC: 0SG1071 Fusion of 2 or more Lumbar Vertebral Joints with Autologous Tissue Substitute, Posterior Approach, Posterior Column, Open Approach (ICD-10-PCS; principal; 2016-07-12)
PROC: 01NB0ZZ Release Lumbar Nerve, Open Approach (ICD-10-PCS; principal; 2016-07-12)
DX: M51.26 Other intervertebral disc displacement, lumbar region (principal); J96.01 Acute respiratory failure with hypoxia; M48.06 Spinal stenosis, lumbar region; M51.36 Other intervertebral disc degeneration, lumbar region; E11.9 Type 2 diabetes mellitus without complications; R50.82 Postprocedural fever; N40.0 Benign prostatic hyperplasia without lower urinary tract symptoms; G47.33 Obstructive sleep apnea (adult) (pediatric); I10 Essential (primary) hypertension; E66.9 Obesity, unspecified; Z68.35 Body mass index [BMI] 35.0-35.9, adult; Z87.891 Personal history of nicotine dependence
CPT/HCPCS: 2NAP; 2NBP; 36415; 72100; 81001; 82436; 87040; 87086; 88304; 93005; 93010; 93970; 97110-GO; 97116-GO; 97161-GP; 97530-GO; C1713; J0131; J0690; J1170; J1644; J2405; J3250; J3490; J7120